=== PATIENT | female | born 1950 | race Caucasian/White ===

== ENCOUNTER 2019-05-15 11:35 | Day surgery (SDC) | payer MEDICARE, OTHER ==
[~2019-05-15] VITALS: Ht 160 cm; Wt 87.0 kg
[~2019-05-15 11:35] MED LIST: CALCA500CH PO; GEMF600 PO; Lofibra160 MG PO; MULTI VITAMIN1 EACH PO; Simvastatin10 MG PO
--- NOTE | 2019-05-15 14:08 | NUR ---
05/15/19 1408 Sushma Vargas APPROXIMATELY LESS THAN 1CC INDIGO CARMINE WITH NORMAL SALINE INJECTED INTO TRANSVERSE COLON FOR POLYPECTOMY
== END 2019-05-15 14:49 | disposition home or self-care (01) ==
LOC: ORSCSDS 11:35
PROVIDERS: Internal Medicine Gastroenterology
PROC: 0DBP8ZX Excision of Rectum, Via Natural or Artificial Opening Endoscopic, Diagnostic (ICD-10-PCS; principal; 2019-05-15 14:00)
PROC: 0DBL8ZX Excision of Transverse Colon, Via Natural or Artificial Opening Endoscopic, Diagnostic (ICD-10-PCS; principal; 2019-05-15 14:00)
DX: Z12.11 Encounter for screening for malignant neoplasm of colon (principal); Z86.010 Personal history of colon polyps; D12.3 Benign neoplasm of transverse colon; K62.1 Rectal polyp; K57.30 Diverticulosis of large intestine without perforation or abscess without bleeding; K64.8 Other hemorrhoids; K64.4 Residual hemorrhoidal skin tags; Z79.899 Other long term (current) drug therapy
CPT/HCPCS: 88305; J2704; J7120

== ENCOUNTER 2025-08-05 08:27 | Day surgery (SDC) | payer MEDICARE, OTHER ==
[~2025-08-05] VITALS: Ht 160 cm; Wt 83.2 kg
[2025-08-05] MEDS ORDERED: RENAL MULTIVIT1 EACH (08:49)
[2025-08-05 12:27] VITALS: BP 147/56
== END 2025-08-05 12:10 | disposition home or self-care (01) ==
LOC: ORSCSDS 08:27
PROVIDERS: Internal Medicine Gastroenterology
PROC: 0DBJ8ZZ Excision of Appendix, Via Natural or Artificial Opening Endoscopic (ICD-10-PCS; principal; 2025-08-05 10:15)
PROC: 0DBL8ZX Excision of Transverse Colon, Via Natural or Artificial Opening Endoscopic, Diagnostic (ICD-10-PCS; principal; 2025-08-05 10:15)
DX: Z12.11 Encounter for screening for malignant neoplasm of colon (principal); D12.3 Benign neoplasm of transverse colon; D12.1 Benign neoplasm of appendix; K57.30 Diverticulosis of large intestine without perforation or abscess without bleeding; K64.4 Residual hemorrhoidal skin tags; Z86.0101 Personal history of adenomatous and serrated colon polyps
CPT/HCPCS: 82947; 88305; J2704; J7120